=== PATIENT | male | born 1995 | race Caucasian/White ===

== ENCOUNTER 2016-05-08 14:26 | Emergency (ER) | payer SELFPAY ==
[2016-05-08 14:32] VITALS: BP 158/93
== END 2016-05-08 19:00 | disposition left against medical advice (07) ==
LOC: ED 14:26
DX: R10.9 Unspecified abdominal pain (principal); Z53.20 Procedure and treatment not carried out because of patient's decision for unspecified reasons
CPT/HCPCS: 99281

== ENCOUNTER 2016-05-08 17:57 | Emergency (ER) | payer SELFPAY ==
[2016-05-08 18:20] VITALS: BP 154/74
--- NOTE | 2016-05-08 20:14 | UC ---
jorden Pressley Timothy, scribed for Karely Zarate MD on 05/08/16 at 1828 . Abdominal Pain Male HPI - HPI Summary HPI Summary: Bishnu Quarles is a 20 yo male presenting to [facility] with constant, 8/10 sharp left abdominal pain for the past few months, worse since this morning. Pt has a Hx of gastroparesis and states he has had nausea and emesis since Dx 12 years ago. Pt states he also had emesis at 1630 today, but denies any complaints, and diarrhea. He has not seen his GI MD for over one year due to insurance issues, and is not taking any medications for illnesses. He has been on a multitude of medications with no relief, including reglan, zofran, prilosec, carafate. Pt states he needs a work note in order to miss work. He denies testicular pain, or urinary symptoms. States he moved his bowels this am and they were normal. - History of Current Complaint Chief Complaint: UC Stated Complaint: ABD PAIN,NAUSEA,VOMITING Time Seen by Provider: 05/08/16 18:23 Hx Obtained From: Patient Onset/Duration: Gradual Onset, Lasting Weeks, Still Present, Worse Since - this morning Timing: Constant Severity Initially: Moderate Severity Currently: Moderate Pain Intensity: 8 Pain Scale Used: 0-10 Numeric Location: Discrete At: RUQ, Discrete At: LUQ, Discrete At: LLQ Radiates: No Character: Sharp Aggravating Factor(s):: Nothing Alleviating Factor(s): Nothing Associated Signs And Symptoms: Positive: Nausea, Vomiting. Negative: Blood in Stool, Urinary Symptoms - Risk Factors Testicular Torsion: Negative Cardiac Risk Factors: Negative - Allergies/Home Medications Allergies/Adverse Reactions: Allergies Allergy/AdvReac Type Severity Reaction Status Date / Time Sulfa Antibiotics Allergy Anaphylatic Verified 05/08/16 18:10 Shock Home Medications: Home Medications NK [No Home Medications Reported] 05/08/16 [History Confirmed 05/08/16] PMH/Surg Hx/FS Hx/Imm Hx GI/ History Of: Denies: Ulcer - Surgical History Surgical History: Yes Surgery Procedure, Year, and Place: ear tubes - Family History Known Family History: Positive: Other - stomach ulcer in father - Social History Occupation: Employed Full-time Alcohol Use: Rare Substance Use Type: Marijuana Smoking Status (MU): Current Every Day Smoker Type: Cigarettes Amount Used/How Often: <1/2 PPD - Immunization History Most Recent Influenza Vaccination: season Most Recent Tetanus Shot: 2010 Vaccination Up to Date: Yes Review of Systems Constitutional: Negative Skin: Negative Eyes: Negative ENT: Negative Respiratory: Negative Cardiovascular: Negative Gastrointestinal: Abdominal Pain, Vomiting, Other - nausea Genitourinary: Negative Motor: Negative Neurovascular: Negative Musculoskeletal: Negative Neurological: Negative Psychological: Negative All Other Systems Reviewed And Are Negative: Yes Physical Exam Triage Information Reviewed: Yes Appearance: Well-Appearing, Well-Nourished, Pain Distress Vital Signs: Initial Vital Signs Temp 98.7 F 05/08/16 18:12 Pulse 74 05/08/16 18:12 Resp 18 05/08/16 18:12 BP 154/74 05/08/16 18:12 Pulse Ox 100 05/08/16 18:12 Vital Signs Reviewed: Yes Eyes: Positive: Conjunctiva Clear ENT: Positive: Hearing grossly normal. Negative: Muffled/hoarse voice Neck: Positive: Supple, Nontender Respiratory: Positive: Lungs clear, Normal breath sounds, No respiratory distress Cardiovascular: Positive: RRR, No Murmur, Pulses Normal, Brisk Capillary Refill Abdomen Description: Positive: Soft, Guarding - RUQ. Negative: Nontender - RUQ , CVA Tenderness (R), CVA Tenderness (L), Distended, McBurney's Point Tenderness , Peritoneal Signs, Pulsatile Mass Bowel Sounds: Positive: Present Musculoskeletal: Positive: Strength Intact, ROM Intact Neurological: Positive: Alert, Muscle Tone Normal Psychological Exam: Normal Skin Exam: Normal Abd Pain Male Course/Dx - Course Course Of Treatment: Bishnu Quarles is a 20 yo male presenting to [facility] with a Hx of gastroparesis and pain in his left lower and right upper quadrant. After evaluation, he does not have an acute abdomen and he will be discharged with instructions to follow up with Dr. Barraza, the GI specialist he has seen in the past. UA results. Color: yellow. Character: clear. Odor: none. Bilirubin: negative. Urobilinogen: normal. Ketones: negative. Ascorbic acid: negative. Glucose: negative. Proteins: 30mg/dL. Blood: negative. pH: 8. Nitrite: negative. Leukocytes: normal. Specific gravity: 1.010 - Differential Dx/Clinical Impression Differential Diagnosis/HQI/PQRI: Bowel Obstruction, Constipation, Diverticulitis , Gall Bladder Disease, Pancreatitis, Ureteral Stone, Urinary Tract Infection Provider Diagnoses: Acute nausea and vomiting, left side abdominal pain, right upper quadrant abdominal pain Discharge - Discharge Plan Condition: Stable Disposition: HOME Patient Education Materials: Low Fat Diet (ED), Acute Nausea and Vomiting (ED) , Abdominal Pain (ED) Forms: *Work Release Referrals: Sanchez Disla DO [Primary Care Provider] - Guillermo Barraza MD [Medical Doctor] - 2 Days ( is the GI specialist. ) Additional Instructions: Follow up with Dr. Barraza regarding your visit to urgent care within two days. Return to urgent care with any new or recurring symptoms. Present to the emergency department with any signs of fever. The documentation as recorded by the jorden fiore Timothy accurately reflects the service I personally performed and the decisions made by , Karely Zarate MD.
== END 2016-05-08 18:58 | disposition home or self-care (01) ==
LOC: UCEAST 17:57
DX: R11.2 Nausea with vomiting, unspecified (principal); R10.11 Right upper quadrant pain; R10.12 Left upper quadrant pain; R10.32 Left lower quadrant pain; Z88.2 Allergy status to sulfonamides; F17.210 Nicotine dependence, cigarettes, uncomplicated
CPT/HCPCS: 81002; 99211; G0463

== ENCOUNTER 2016-05-10 17:17 | Emergency (ER) | payer SELFPAY ==
[2016-05-10] MEDS ORDERED: Ondansetron INJ* 2 MG/ML VIAL IV ONE (18:38)
[2016-05-10] MEDS ORDERED: Sucralfate TAB* 1 GM PO ONE (18:38)
[2016-05-10] MEDS ORDERED: Ketorolac INJ* 30 MG/ML 1 ML VIAL IV ONE (18:38)
[2016-05-10 19:04] LABS: Hematocrit 44 % (42-52); Hemoglobin 14.8 g/dl (14.0-18.0); Mean Corpuscular HGB Conc 34 g/dl (31-36); Mean Corpuscular Hemoglobin 28 pg (27-31); Mean Corpuscular Volume 84 fL (80-94); Mean Platelet Volume 8 um3 (7.4-10.4); Red Blood Count 5.23 10^6/ul (4.0-5.4); Red Cell Distribution Width 13 % (10.5-15); White Blood Count 7.9 10^3/ul (3.5-10.8)
[2016-05-10 19:49] LABS: ALT 9 U/L (7-52); AST 12 U/L (13-39); Albumin 4.6 g/dL (3.2-5.2); Alkaline Phosphatase 56 U/L (34-104); Anion Gap 5 mmol/L (2-11); BUN/Creatinine Ratio 9.5 (8-20); Blood Urea Nitrogen 8 mg/dL (6-24); C Reactive Protein < 1.00 mg/L (< 5.00); CO2 Carbon Dioxide 29 mmol/L (22-32); Calcium 9.6 mg/dL (8.6-10.3); Chloride 104 mmol/L (101-111); EGFR African American 151.4 (>60); EGFR Non-African American 117.7 (>60); Globulin 2.4 g/dL (2-4); Glucose 91 mg/dL (70-100); Lipase 12 U/L (11.0-82.0); Potassium 3.7 mmol/L (3.5-5.0); Sodium 138 mmol/L (133-145)
--- NOTE | 2016-05-10 20:08 | RAD ---
Indication: 1.5 months RIGHT upper quadrant and epigastric pain with worsening in the past 4 weeks. Comparison: December 14, 2013 CT. Technique: RIGHT upper quadrant ultrasound. Report: Appropriate direction flow documented in the portal and hepatic veins. 14.4 cm liver is normal in echotexture. No focal hepatic lesions or biliary dilatation. 2 mm common bile duct. Adequately distended gallbladder with normal 1.7 mm wall is remarkable for a 2 mm polyp along the anterior wall. No echogenic shadowing foci evident to indicate cholelithiasis. Tenderness elicited when scanning over the gallbladder fossa. Negative for pericholecystic fluid. The pancreas is poorly visualized due to bowel gas. The visualized pancreatic body is grossly unremarkable. Negative for ascites. Unremarkable 10.7 cm RIGHT kidney. IMPRESSION: 1. 2 mm probable cholesterol or inflammatory polyp. Gallbladder polyps 6mm or smaller have extremely low risk of malignancy and typically do not warrant follow up. On occasion polyps may actually represent small gallstones adherent to the gallbladder wall at surgery. 2. Tenderness elicited when scanning over the gallbladder fossa despite finding such as cholelithiasis, gallbladder wall thickening, or pericholecystic fluid to suggest acute cholecystitis.
[2016-05-10] MEDS ORDERED: NS 0.9% 1000 ML* 1,000 ML IV ONE (20:41)
[2016-05-10] MEDS ORDERED: Metoclopramide IV* 5 MG/ML 2 ML VIAL IV ONE (20:41)
[2016-05-10] MEDS ORDERED: Metoclopramide IV* 5 MG/ML 2 ML VIAL ONE ×2 (20:42)
[2016-05-10] MEDS ORDERED: HYDROcodone/ACETAMIN 5-325 MG* 1 TAB PO ONE (21:13)
[2016-05-10 21:39] VITALS: BP 154/74
--- NOTE | 2016-05-11 00:10 | ED ---
Cali Pressley Karl, scribed for Hermelindo Leahy MD on 05/10/16 at 1837 . Abdominal Pain/Male - HPI Summary HPI Summary: Pt is a 20 y/o male that presents to the ED c/o 01/30 abd pain that has persisted for approx 1.5 month. Pt reported the pain as a sharp pain in his RUQ that began to worsen 2 days ago, stating "it felt like someone was stabbing me and I could not get out of bed." Pt stated his pain is even worse today than yesterday and he is vomiting anything he eats. Pt did state that he normally vomits from gastroperesis but the pain he is feeling is different than what it normally feels like. Pt stated vomiting, eating, and pressing on his RUQ aggravates the pain and nothing alleviates it. Hx: gastroperesis. - History of Current Complaint Chief Complaint: ED Stated Complaint: ABD PAIN Time Seen by Provider: 05/10/16 18:23 Hx Obtained From: Patient Onset/Duration: Gradual Onset, Lasting Weeks - 6, Worse Since - last 2 days Timing: Constant Severity Initially: Moderate Severity Currently: Moderate Pain Intensity: 10 - RUQ abd pain Pain Scale Used: 0-10 Numeric Location: Discrete At: RUQ Radiates: No Character: Sharp Aggravating Factor(s): Food, Other: - vomiting, pressure on RUQ Associated Signs And Symptoms: Positive: Negative - Allergies/Home Medications Allergies/Adverse Reactions: Allergies Allergy/AdvReac Type Severity Reaction Status Date / Time Sulfa Antibiotics Allergy Anaphylatic Verified 05/08/16 18:10 Shock PMH/Surg Hx/FS Hx/Imm Hx Endocrine/Hematology History: Denies: Hx Diabetes, Hx Thyroid Disease Cardiovascular History: Denies: Hx Hypertension, Hx Pacemaker/ICD Respiratory History: Denies: Hx Asthma, Hx Chronic Obstructive Pulmonary Disease (COPD) GI History: Denies: Hx Ulcer Psychiatric History: Denies: Hx Panic Disorder - Surgical History Surgery Procedure, Year, and Place: ear tubes Infectious Disease History: No Infectious Disease History: Denies: Hx Clostridium Difficile, Hx Hepatitis, Hx Human Immunodeficiency Virus (HIV), Hx of Known/Suspected MRSA, Hx Shingles, Hx Tuberculosis, Hx Known/ Suspected VRE, Hx Known/Suspected VRSA, History Other Infectious Disease, Traveled Outside the [place] in Last 30 Days - Family History Known Family History: Positive: Other - stomach ulcer in father - Social History Alcohol Use: Rare Substance Use Type: Reports: Marijuana Smoking Status (MU): Current Every Day Smoker Type: Cigarettes Amount Used/How Often: <1/2 PPD Review of Systems Constitutional: Negative Eyes: Negative ENT: Negative Cardiovascular: Negative Respiratory: Negative Positive: Abdominal Pain, Vomiting, Other - decreased oral intake Genitourinary: Negative Musculoskeletal: Negative Skin: Negative Neurological: Negative Psychological: Normal All Other Systems Reviewed And Are Negative: Yes Physical Exam Triage Information Reviewed: Yes Vital Signs On Initial Exam: Initial Vitals Temp Pulse Resp BP Pulse Ox 99.3 F 88 16 168/89 100 05/10/16 17:20 05/10/16 17:20 05/10/16 17:20 05/10/16 17:20 05/10/16 17:20 Vital Signs Reviewed: Yes Appearance: Positive: Well-Appearing, Pain Distress - mild Skin: Positive: Warm, Skin Color Reflects Adequate Perfusion, Dry Head/Face: Positive: Normal Head/Face Inspection Eyes: Positive: Normal ENT: Positive: Normal ENT inspection Neck: Positive: Supple, Nontender Respiratory/Lung Sounds: Positive: Clear to Auscultation, Breath Sounds Present Cardiovascular: Positive: RRR Abdomen Description: Positive: Other: - tender in epigastrium and RUQ Bowel Sounds: Positive: Present Musculoskeletal: Positive: Normal Neurological: Positive: Normal Psychiatric: Positive: Normal, Affect/Mood Appropriate Diagnostics - Vital Signs Vital Signs Temp Pulse Resp BP Pulse Ox 05/10/16 17:20 99.3 F 88 16 168/89 100 - Laboratory Lab Results: Lab Results 05/10/16 05/10/16 05/10/16 Range/Units 18:38 18:50 18:50 WBC 7.9 (3.5-10.8) 10^3/ul RBC 5.23 (4.0-5.4) 10^6/ul Hgb 14.8 (14.0-18.0) g/dl Hct 44 (42-52) % MCV 84 (80-94) fL MCH 28 (27-31) pg MCHC 34 (31-36) g/dl RDW 13 (10.5-15) % Plt Count 239 (150-450) 10^3/ul MPV 8 (7.4-10.4) um3 Neut % (Auto) 58.4 (38-83) % Lymph % (Auto) 33.6 (25-47) % [place] % (Auto) 6.6 (1-9) % Eos % (Auto) 0.8 (0-6) % Baso % (Auto) 0.6 (0-2) % Absolute Neuts (auto) 4.6 (1.5-7.7) 10^3/ul Absolute Lymphs (auto) 2.6 (1.0-4.8) 10^3/ul Absolute Monos (auto) 0.5 (0-0.8) 10^3/ul Absolute Eos (auto) 0.1 (0-0.6) 10^3/ul Absolute Basos (auto) 0 (0-0.2) 10^3/ul Absolute Nucleated RBC 0 10^3/ul Nucleated RBC % 0 Sodium 138 (133-145) mmol/L Potassium 3.7 (3.5-5.0) mmol/L Chloride 104 (101-111) mmol/L Carbon Dioxide 29 (22-32) mmol/L Anion Gap 5 (2-11) mmol/L BUN 8 (6-24) mg/dL Creatinine 0.84 (0.67-1.17) mg/dL Est GFR ( Amer) 151.4 (>60) Est GFR (Non-Af Amer) 117.7 (>60) BUN/Creatinine Ratio 9.5 (8-20) Glucose 91 (70-100) mg/dL Lactic Acid 1.1 (0.5-2.0) mmol/L Calcium 9.6 (8.6-10.3) mg/dL Total Bilirubin 0.40 (0.2-1.0) mg/dL AST 12 L (13-39) U/L ALT 9 (7-52) U/L Alkaline Phosphatase 56 (34-104) U/L C-Reactive Protein < 1.00 (< 5.00) mg/L Total Protein 7.0 (6.4-8.9) g/dL Albumin 4.6 (3.2-5.2) g/dL Globulin 2.4 (2-4) g/dL Albumin/Globulin Ratio 1.9 (1-3) Lipase 12 (11.0-82.0) U/L Result Diagrams: 05/10/16 18:50 05/10/16 18:38 Lab Statement: Any lab studies that have been ordered have been reviewed, and results considered in the medical decision making process. - Additional Comments Diagnostic Additional Comments: US Gallbladder (Radiologist) IMPRESSION: 1. 2 mm probable cholesterol or inflammatory polyp. Gallbladder polyps 6mm or smaller have extremely low risk of malignancy and typically do not warrant follow up. On occasion polyps may actually represent small gallstones adherent to the gallbladder wall at surgery. 2. Tenderness elicited when scanning over the gallbladder fossa despite finding such as cholelithiasis, gallbladder wall thickening, or pericholecystic fluid to suggest acute cholecystitis. Abdominal Pain Fem Course/Dx - Course Course Of Treatment: Bishnu Quarles presented with epigastric and RUQ pain for the last several days that is different from his chronic pain and accompanied by vomiting. He was the GI MD this AM and is scheduled for a HIDA scan on Sunday. His W/U is negative for any acute problem and he was treated symptomatically. - Diagnoses Provider Diagnoses: Gallbladder disease Discharge - Discharge Plan Condition: Stable Disposition: HOME Prescriptions: HYDROcodone/ACETAMIN 5-325 MG* [[place] 5-325 TAB*] 1 tab PO Q6H PRN #20 tab MDD 4 PRN Reason: Pain Patient Education Materials: Acute Nausea and Vomiting (ED) Referrals: No Primary Care Phys,NOPCP [Primary Care Provider] - Additional Instructions: Please follow up with Dr. Barraza (Gastroenterology) at . Return to the emergency department if symptoms change or worsen. The documentation as recorded by the Cali fiore Karl accurately reflects the service I personally performed and the decisions made by me, Hermelindo Leahy MD.
== END 2016-05-10 21:38 | disposition home or self-care (01) ==
LOC: ED 17:17
DX: K82.9 Disease of gallbladder, unspecified (principal); R10.11 Right upper quadrant pain; F17.210 Nicotine dependence, cigarettes, uncomplicated; R11.10 Vomiting, unspecified
CPT/HCPCS: 36415; 76705; 80053; 83605; 83690; 85025; 86140; 96361; 96374; 96375; 99282; A9270-GY; J1885; J2405; J2765

== ENCOUNTER → 2016-08-24 07:41 | Day surgery (SDC) | payer BC ==
[~2016-08-24 07:41] MED LIST: Buffered Lidocaine 1% SYRIN* 3 ML/SYR SYRINGE INTRADERM ONE; Bupivacaine 0.25% EPI 200,000* 30 ML SDV ONE; Dexamethasone IV* 4 MG/ML 1 ML (4 MG) IV SLOW PU ONE; Dexamethasone IV* 4 MG/ML 1 ML (4 MG) ONE; DiMENhydriNATE IV* 50 MG/ML VIAL IV PUSH PRN; DiMENhydriNATE IV* 50 MG/ML VIAL ONE; Famotidine IV* 10 MG/ML 2 ML (20 mg) IV ONE; Famotidine IV* 10 MG/ML 2 ML (20 mg) ONE; Glycopyrrolate IV* 0.2 MG/ML 1 ML VIAL ONE; HYDROmorphone* 1 MG/ML 1 ML SYR ONE; KETAMINE HCL* 50 MG/ML 10 ML VIAL ONE; Ketorolac INJ* 30 MG/ML 1 ML VIAL ONE; Lidocaine 2% PF * 5 ML VIAL ONE; Metoclopramide IV* 5 MG/ML 2 ML VIAL ONE; Midazolam* 1 MG/ML 2 ML VIAL (2 MG) ONE; Morphine INJ* 4 MG/ML 1 ML SYRINGE ONE; Neostigmine Methylsulfate* 2 MG/2 ML SYRINGE ONE; Ondansetron INJ* 2 MG/ML VIAL ONE; PROCHLORPERAZINE INJ 5 MG/ML 2 ML VIAL IV PRN; PROCHLORPERAZINE INJ 5 MG/ML 2 ML VIAL ONE; Propofol* 10 MG/ML 20 ML BTL IV PUSH ONE; Rocuronium* 10 MG/ML VIAL ONE; Scopolamine 1.5 mg* PATCH ONE; ceFAZolin 2 GM PREMIX(*) 2 GM/50 ML BAG IVPB ONE; fentaNYL* 50 MCG/ML 2 ML VIAL (100 MCG VIAL) ONE; fentaNYL* 50 MCG/ML 5 ML VIAL (250 MCG VIAL) ONE
[2016-08-24] MEDS: HYDROmorphone* 1 MG/ML 1 ML SYR IV PRN ×2 (10:02→10:16)
[2016-08-24] MEDS: fentaNYL* 50 MCG/ML 2 ML VIAL (100 MCG VIAL) IV PRN ×3 (10:02→10:17)
[2016-08-24 11:39] VITALS: BP 122/83
--- NOTE | 2016-08-24 11:42 | OP ---
DATE OF OPERATION: 08/24/16 - SDS DATE OF : [birth year] SURGEON: Deepak Almonte MD [employer] DIRECTOR: America Felipe NP ANESTHESIOLOGIST: Dr. Bustos. ANESTHESIA: General anesthetic, local infiltration. PRE-OP DIAGNOSIS: Chronic biliary colic. POST-OP DIAGNOSIS: Chronic biliary colic. OPERATIVE PROCEDURE: Laparoscopic cholecystectomy. DESCRIPTION OF PROCEDURE: The patient was supine on the operating room table. After adequate general anesthetic, compression stockings, Rosalee Hugger warmer, intravenous antibiotics, the abdomen was clipped and prepped with antiseptic and draped in a sterile fashion. Local infiltrative anesthesia was administered and small umbilical incision was created. Blunt port cannula was placed. Insufflation was carried out with carbon dioxide. Additional cannulae, 12 mm subxiphoid and 5 mm right upper quadrant and right anterior axillary line , were placed through small stab wounds under direct vision. The gallbladder was tented upward, areolar tissue was taken down off the cystic duct and cystic artery, which were readily clipped and divided. There was a posterior branch of the cystic artery, which was also clipped and divided. The gallbladder was taken off the liver bed without difficulty. Critical angle of view was obtained before clipping or dividing anything. The gallbladder was removed through the subxiphoid port without difficulty. There was no spillage. Hemostasis was excellent. Cannulae were removed. Pneumoperitoneum was allowed to escape. Umbilical fascia was closed with 0 Polysorb and skin with 5-0 Polysorb followed by Steri-Strips. He tolerated the procedure well and was brought to Recovery in good condition. No complications. No drains. Pathologic specimen was gallbladder. Sponge and instruments counts were correct. Estimated blood loss 30 mL. [id number] #: [id number] [facility]
== END | disposition home or self-care (01) ==
LOC: OR 07:41
PROVIDERS: ATTEND Surgery
DX: K81.1 Chronic cholecystitis (principal); F17.210 Nicotine dependence, cigarettes, uncomplicated
CPT/HCPCS: 88304; A9270-GY; J0690; J0780; J1100; J1170; J1240; J1885; J2250; J2270; J2405; J2704; J3010

== ENCOUNTER 2016-10-09 13:42 | Emergency (ER) | payer BC ==
[2016-10-09 14:49] LABS: Hematocrit 44 % (42-52); Hemoglobin 14.9 g/dl (14.0-18.0); Mean Corpuscular HGB Conc 34 g/dl (31-36); Mean Corpuscular Hemoglobin 29 pg (27-31); Mean Corpuscular Volume 84 fL (80-94); Mean Platelet Volume 8 um3 (7.4-10.4); Red Blood Count 5.25 10^6/ul (4.0-5.4); Red Cell Distribution Width 14 % (10.5-15); White Blood Count 8.5 10^3/ul (3.5-10.8)
[2016-10-09 15:00] LABS: Albumin 4.4 g/dL (3.2-5.2); BUN/Creatinine Ratio 11.6 (8-20); Calcium 9.7 mg/dL (8.6-10.3); EGFR African American 145.8 (>60); EGFR Non-African American 113.4 (>60); Globulin 2.5 g/dL (2-4); Potassium 4.1 mmol/L (3.5-5.0); Total Bilirubin 0.4 mg/dL (0.2-1.0); Total Protein 6.9 g/dL (6.4-8.9)
[2016-10-09] MEDS ORDERED: Ondansetron ODT TAB* 4 MG PO ONE (15:46)
[2016-10-09] MEDS ORDERED: Ondansetron ODT TAB* 4 MG ONE (15:48)
[2016-10-09 16:27] VITALS: BP 115/76
--- NOTE | 2016-10-10 23:01 | ED ---
Harleen Pressley SooYoung, scribed for Malik Acosta MD on 10/09/16 at 1615 . Abdominal Pain/Male - HPI Summary HPI Summary: A 21 y/o M presents to ED with c/o intermittent abd pain onset past week. Pert SHx: cholecystectomy with Dr. Almonte on 08/27/16. Pt last saw Dr. Almonte approx two weeks ago, and everything was nml and healing properly. Dr. Almonte is unaware pt is in ED today. Pt does not have a PCP. Associated sx: n/v/d, last episode of vomiting at 0900; diaphoresis. Pt states he's been having diarrhea since the surgery in the beginning of August, his last BM was this AM. Aggravating factors: possibly food. Pt is on a firm diet with no greasy foods, red meats, or fast food. - History of Current Complaint Chief Complaint: EDAbdPain Stated Complaint: ABD PAIN/VOMITING Time Seen by Provider: 10/09/16 15:42 Hx Obtained From: Patient Onset/Duration: Lasting Weeks, Still Present Timing: Intermittent Severity Initially: Moderate Severity Currently: Moderate Pain Intensity: 5 Pain Scale Used: 0-10 Numeric Location: Diffuse Aggravating Factor(s): Food - mildly Associated Signs And Symptoms: Positive: Diaphoresis, Nausea, Vomiting, Diarrhea. Negative: Constipation, Urinary Symptoms - Allergies/Home Medications Allergies/Adverse Reactions: Allergies Allergy/AdvReac Type Severity Reaction Status Date / Time Sulfa Antibiotics Allergy Severe Anaphylatic Verified 08/24/16 07:52 Shock PMH/Surg Hx/FS Hx/Imm Hx Previously Healthy: No Endocrine/Hematology History: Denies: Hx Diabetes, Hx Thyroid Disease Cardiovascular History: Denies: Hx Hypertension, Hx Pacemaker/ICD Respiratory History: Denies: Hx Asthma, Hx Chronic Obstructive Pulmonary Disease (COPD) GI History: Reports: Hx Irritable Bowel - possibilty, but actual dx, Other GI Disorders - gall stones Denies: Hx Ulcer Sensory History: Reports: Hx Contacts or Glasses - glasses for driving Denies: Hx Hearing Aid Opthamlomology History: Reports: Hx Contacts or Glasses - glasses for driving Psychiatric History: Denies: Hx Panic Disorder - Surgical History Surgery Procedure, Year, and Place: ear tubes as an . EGD Hx Anesthesia Reactions: Yes - patient "freaked out" during anesthesia and woke up during Infectious Disease History: No Infectious Disease History: Denies: Hx Clostridium Difficile, Hx Hepatitis, Hx Human Immunodeficiency Virus (HIV), Hx of Known/Suspected MRSA, Hx Shingles, Hx Tuberculosis, Hx Known/ Suspected VRE, Hx Known/Suspected VRSA, History Other Infectious Disease, Traveled Outside the [place] in Last 30 Days - Family History Known Family History: Positive: Other - stomach ulcer in father - Social History Occupation: Student Lives: With Family Alcohol Use: None Hx Substance Use: No Substance Use Type: Reports: None Hx Tobacco Use: Yes Smoking Status (MU): Former Smoker Type: Cigarettes Amount Used/How Often: <1/2 PPD Review of Systems Positive: Skin Diaphoresis. Negative: Fever, Chills Negative: Erythema Negative: Sore Throat Negative: Chest Pain Negative: Shortness Of Breath, Cough Positive: Abdominal Pain, Vomiting, Diarrhea, Nausea Negative: dysuria, hematuria Negative: Myalgia, Edema Negative: Rash Neurological: Other - NEG: DIZZINESS All Other Systems Reviewed And Are Negative: Yes Physical Exam - Summary Physical Exam Summary: Constitutional: Well-developed, Well-nourished, Alert. (-) Distressed Skin: Warm, Dry HENT: Normocephalic; Atraumatic Eyes: Conjunctiva normal Neck: Musculoskeletal ROM normal neck. (-) JVD, (-) Stridor, (-) Tracheal deviation Cardio: Rhythm regular, rate normal, Heart sounds normal; Intact distal pulses; The pedal pulses are 2+ and symmetric. Radial pulses are 2+ and symmetric. (-) Murmur Pulmonary/Chest wall: Effort normal. (-) Respiratory distress, (-) Wheezes, (-) Rales Abd: Soft, (-) Distension, RUQ TENDERNESS. Musculoskeletal: (-) Edema Lymph: (-) Cervical adenopathy Neuro: Alert, Oriented x3 Psych: Mood and affect Normal Triage Information Reviewed: Yes Vital Signs On Initial Exam: Initial Vitals Temp Pulse Resp BP Pulse Ox 97.9 F 94 17 140/82 97 10/09/16 13:46 10/09/16 13:46 10/09/16 13:46 10/09/16 13:46 10/09/16 13:46 Vital Signs Reviewed: Yes - [place] Coma Scale Coma Scale Total: 15 Diagnostics - Vital Signs Vital Signs Temp Pulse Resp BP Pulse Ox 10/09/16 15:30 66 111/76 98 10/09/16 15:04 98.2 F 61 18 127/88 97 10/09/16 15:03 127/88 10/09/16 13:46 97.9 F 94 17 140/82 97 - Laboratory Lab Results: Lab Results 10/09/16 10/09/16 10/09/16 Range/Units 14:25 14:25 14:25 WBC 8.5 (3.5-10.8) 10^3/ul RBC 5.25 (4.0-5.4) 10^6/ul Hgb 14.9 (14.0-18.0) g/dl Hct 44 (42-52) % MCV 84 (80-94) fL MCH 29 (27-31) pg MCHC 34 (31-36) g/dl RDW 14 (10.5-15) % Plt Count 249 (150-450) 10^3/ul MPV 8 (7.4-10.4) um3 Neut % (Auto) 63.2 (38-83) % Lymph % (Auto) 26.6 (25-47) % [place] % (Auto) 7.9 (1-9) % Eos % (Auto) 1.6 (0-6) % Baso % (Auto) 0.7 (0-2) % Absolute Neuts (auto) 5.4 (1.5-7.7) 10^3/ul Absolute Lymphs (auto) 2.3 (1.0-4.8) 10^3/ul Absolute Monos (auto) 0.7 (0-0.8) 10^3/ul Absolute Eos (auto) 0.1 (0-0.6) 10^3/ul Absolute Basos (auto) 0.1 (0-0.2) 10^3/ul Absolute Nucleated RBC 0.01 10^3/ul Nucleated RBC % 0.1 Sodium 137 (133-145) mmol/L Potassium 4.1 (3.5-5.0) mmol/L Chloride 103 (101-111) mmol/L Carbon Dioxide 29 (22-32) mmol/L Anion Gap 5 (2-11) mmol/L BUN 10 (6-24) mg/dL Creatinine 0.86 (0.67-1.17) mg/dL Est GFR ( Amer) 145.8 (>60) Est GFR (Non-Af Amer) 113.4 (>60) BUN/Creatinine Ratio 11.6 (8-20) Glucose 104 H (70-100) mg/dL Lactic Acid 0.8 (0.5-2.0) mmol/L Calcium 9.7 (8.6-10.3) mg/dL Total Bilirubin 0.40 (0.2-1.0) mg/dL AST 10 L (13-39) U/L ALT 8 (7-52) U/L Alkaline Phosphatase 52 (34-104) U/L Total Protein 6.9 (6.4-8.9) g/dL Albumin 4.4 (3.2-5.2) g/dL Globulin 2.5 (2-4) g/dL Albumin/Globulin Ratio 1.8 (1-3) Result Diagrams: 10/09/16 14:25 10/09/16 14:25 Lab Statement: Any lab studies that have been ordered have been reviewed, and results considered in the medical decision making process. Abdominal Pain Fem Course/Dx - Course Course Of Treatment: Pt is a 21 y/o M presenting with intermittent abd pain onset past week. Pert SHx: cholecystectomy with Dr. Almonte on 08/27/16. F/U with Suzy two weeks ago was nml. Associated sx: n/v/d, last episode of vomiting at 0900; diaphoresis. Pt states he's been having diarrhea since the surgery, his last BM was this AM. Aggravating factors: possibly food. Pt is on a firm diet with no greasy foods, red meats, or fast food. Pt given Zofran in ED. Labs were WNL except elevated glucose, and decreased AST. No evidence for common bile duct stones based on labs, no obstructive jaundice. Pt tolerated PO challenge, will D/C home. Pt has Zofran at home, he is instructed to continue taking it every 8 hours as needed; to follow up with Dr. Almonte within the new few days and to establish and see a PCP in the next few days. Pt voiced understanding. - Diagnoses Provider Diagnoses: RUQ abdominal tenderness, Vomiting Discharge - Discharge Plan Condition: Stable Disposition: HOME Patient Education Materials: Acute Nausea and Vomiting (ED) Forms: *Work Release Referrals: [facility] [place] [facility] [Outside] Deepak Almonte MD [Medical Doctor] - No Primary Care Phys,NOPCP [Primary Care Provider] - Additional Instructions: Continue taking your Rx for Zofran, every 8 hours as needed. Drink broth and Gatorade to help settle your stomach. Establish with a Primary Care Provider and see them within the next few days. Follow-up with Dr. Almonte in the next few days as well. Return to the emergency department for changing or worsening or persistent symptoms The documentation as recorded by the Harleen fiore SooYoung accurately reflects the service I personally performed and the decisions made by me, Malik Acosta MD.
== END 2016-10-09 16:25 | disposition home or self-care (01) ==
LOC: ED 13:42
DX: R10.811 Right upper quadrant abdominal tenderness (principal); R11.2 Nausea with vomiting, unspecified; R19.7 Diarrhea, unspecified; Z87.891 Personal history of nicotine dependence; R61 Generalized hyperhidrosis
CPT/HCPCS: 36415; 80053; 83605; 85025; 99283; A9270-GY